=== PATIENT | female | born 1925 | race Caucasian/White ===

== ENCOUNTER 2016-04-29 21:13 | Emergency (ER) | payer MEDICARE, OTHER ==
[2016-04-29] MEDS ORDERED: NORMAL SALINE 1,000 ML IV ONE (22:23)
[2016-04-29] MEDS ORDERED: ONDANSETRON 4 MG TAB.RAPDIS PO ONE (22:23)
[2016-04-29] MEDS ORDERED: NORMAL SALINE 1,000 ML IV PRN (22:23)
--- NOTE | 2016-04-29 22:26 | ERNOTE ---
Medical Problem HPI - General Chief Complaint: Nausea/Vomiting Source: patient Exam Limitations: no limitations - Immun/Allergies/Home Medications Immunizations: IMMUNIZATION HX Immunizations Up to Date Yes History of Influenza Vaccine Yes Hx Pneumococcal Vaccination Yes Allergies/Adverse Reactions: Allergies amoxicillin Adverse Reaction (Verified 04/29/16 21:37) amoxicillin trihydrate [From Amoxil] Adverse Reaction (Verified 04/29/16 21:37) - History of Present History Narrative: onset 2 weeks ago but then subsided for a few days then had liquid black stools and has not improved Timing: getting worse Severity: moderate Modifying Factors - (Worsens): Present: eating Review of Systems - Review of Systems Constitutional: Absent: fever ENT: Present: no symptoms reported Respiratory: Present: no symptoms reported Cardiology: Present: no symptoms reported Gastrointestinal/Abdominal: Present: See HPI, nausea, vomiting, abdominal pain - with previous episodes not now Genitourinary: Present: no symptoms reported Musculoskeletal: Present: no symptoms reported Skin: Present: no symptoms reported Neurological: Present: no symptoms reported Endocrine: Present: no symptoms reported Hematologic/Lymphatic: Present: no symptoms reported Psych: Present: no symptoms reported - Patient's Past Medical History Patient History - Medical: History Unknown Patient History - Cardiac/Respiratory: History Unknown, Myocardial Infarction Patient History - Cancer: No Hx of Cancer Patient History - Surgical Procedures: Appendectomy, Colon Resection, Colonoscopy, Hysterectomy, Pacemaker Patient History - Other: None - Social History Living Situations: spouse Abuse History: No History of abuse Psych History: No pertinent hx Smoking Status: Never smoker Alcohol Use: occasionally Drug Use: none - Immunizations Immunizations Up to Date: Yes Hx Pneumococcal Vaccination: Yes History of Influenza Vaccine: Yes Physical Exam - Physical Exam General Appearance: Present: wd/wn, alert, no apparent distress Eye Exam: Normal inspection: bilateral, PERRL: bilateral Ears, Nose, Throat: Present: normal ENT inspection, hearing grossly normal Neck: Present: normal inspection, nontender Respiratory: Present: no respiratory distress, no accessory muscle use Cardiovascular/Chest: Present: no murmur, tachycardia Gastrointestinal/Abdominal: Present: nontender, nondistended, abnormal bowel sounds - hyperactive Extremity Exam: Present: normal inspection, non-tender, no edema Neurological Exam: Present: alert, oriented, normal mood/affect, no motor/ sensory deficits Skin Exam: Present: normal color, warm/dry ED Progress - Results and Orders Patient's Lab Results:: I have reviewed the patient's lab results. Results and Orders: Laboratory Tests 04/29/16 04/29/16 22:57 22:57 WBC 6.7 Hgb 12.6 Hct 39.0 Plt Count 166 Sodium 140 Potassium 3.8 Chloride 103 Carbon Dioxide 29.7 Anion Gap 11.1 BUN 35 H Creatinine 1.42 H Est GFR (Non-Af Amer) 37 L Random Glucose 72 Calcium 9.2 Total Bilirubin 0.4 AST 22 ALT 16 L Alkaline Phosphatase 89 Total Protein 6.7 Albumin 3.2 L - Vital Signs Patient's Vital Signs:: I have reviewed the patient's vital signs. Vital Signs: Vital Signs 04/29/16 04/29/16 21:24 22:00 Temperature 36.5 C Pulse Rate 100 108 H Respiratory 14 22 H Rate Blood Pressure 125/54 91/68 O2 Sat by Pulse 96 97 Oximetry - X-Ray X-Ray #1 X-Ray: abdomen Interpretation: Interp. by me X-ray Comments: air filled loops of bowel non-dilated, no evidence for obstruction. - Progress/Reassessment Chief Complaint: Nausea/Vomiting Departure - Departure Clinical Impression: Diarrhea of presumed infectious origin Disposition: Home Follow Up Needed Condition: Good Instructions: Diarrhea, Adult, [id number] Additional Instructions: may take medicine prescribed to you for diarrhea. do not take too much only to slow it down a little. Drink plenty of fluids especially sugar containing fluids
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
[2016-04-29 22:59] LABS: Hemoglobin 12.6 gm/dL (12.5-16.0); Mean Cell Volume 93.3 fl (78-100); Mean Corpuscular Hemoglobin 30.1 pg (27-31); Mean Corpuscular Hgb Conc 32.3 g/dl (32-36); Mean Platelet Volume 11.4 fl (6.0-9.5); Neutrophil % 59.7 % (42-75.0); Platelet Count 166 K/mm3 (150-450); Red Blood Count 4.18 M/mm3 (4.2-5.4); Red Cell Distribution Width 13.5 % (11.5-14.0); White Blood Count 6.7 K/mm3 (4.0-10.5)
[2016-04-29 23:11] LABS: Albumin * 3.2 gm/dl (3.4-5.0); Anion Gap 11.1 mmol/L (6.8-13.8); BUN/Creatinine Ratio 24.6 (9.0-21.6); Bilirubin, Total 0.4 mg/dL (0.0-1.1); Ca. Corrected For Albumin 9.5 mg/dL (8.4-10.2); Calcium * 9.2 mg/dL (7.9-10.9); Carbon Dioxide 29.7 mmol/L (24-32.6); Potassium 3.8 mmol/L (3.4-4.6); Total Protein 6.7 gm/dL (6.2-8.2)
[2016-04-30 00:39] VITALS: BP 122/69
== END 2016-04-30 00:38 | disposition home or self-care (01) ==
LOC: ER 21:13
DX: R19.7 Diarrhea, unspecified (principal); R11.10 Vomiting, unspecified; I25.2 Old myocardial infarction

== ENCOUNTER 2016-10-01 14:19 | Emergency (ER) | payer MEDICARE, OTHER ==
[2016-10-01] MEDS ORDERED: NORMAL SALINE 1,000 ML IV PRN (15:22)
[2016-10-01] MEDS ORDERED: CLONIDINE HCL 0.1 MG TABLET PO ONE (15:23)
[2016-10-01] MEDS ORDERED: CLONIDINE HCL 0.1 MG TABLET ONE (15:29)
[2016-10-01 15:35] LABS: Urine Appearance Clear; Urine Bilirubin Negative (NEGATIVE); Urine Blood 5 /ul (NEGATIVE); Urine Color Yellow; Urine Ketone Negative (NEGATIVE); Urine Nitrite Negative (NEGATIVE); Urine Protein 100 mg/dL (NEGATIVE); Urine Urobilinogen Normal (NORMAL); Urine pH 6.5 pH (5.0-7.0)
[2016-10-01 15:36] LABS: Urine Bacteria None Seen; Urine RBC 0-5 /hpf (0-5); Urine WBC None Seen /hpf (0-5)
[2016-10-01 15:42] LABS: Hematocrit 43.9 % (37.0-47.0); Hemoglobin 14.8 gm/dL (12.5-16.0); Mean Cell Volume 90.3 fl (78-100); Mean Corpuscular Hemoglobin 30.5 pg (27-31); Mean Corpuscular Hgb Conc 33.7 g/dl (32-36); Mean Platelet Volume 10.3 fl (6.0-9.5); Neutrophil # 4.8 K/mm3 (1.3-6.0); Neutrophil % 62.8 % (42-75.0); Platelet Count 220 K/mm3 (150-450); Red Blood Count 4.86 M/mm3 (4.2-5.4); Red Cell Distribution Width 12.9 % (11.5-14.0); White Blood Count 7.6 K/mm3 (4.0-10.5)
[2016-10-01 15:58] LABS: Albumin * 4.2 gm/dl (3.4-5.0); Anion Gap 10.8 mmol/L (6.8-13.8); BUN/Creatinine Ratio 16.5 (9.0-21.6); Ca. Corrected For Albumin 8.7 mg/dL (8.4-10.2); Calcium * 9.2 mg/dL (7.9-10.9); Carbon Dioxide 31.4 mmol/L (24-32.6); Potassium 4.2 mmol/L (3.4-4.6); Total Protein 8.1 gm/dL (6.2-8.2); Troponin I 0.018 ng/ml (0.00-0.10)
[2016-10-01] MEDS ORDERED: LABETALOL HCL 5 MG/ML VIAL IV ONE ×2 (16:20→16:30)
--- NOTE | 2016-10-01 17:52 | ERNOTE ---
Medical Problem HPI - Narrative Date of Service: 10/01/16 - General Chief Complaint: General Assessment Time Seen by Provider: 10/01/16 14:47 Source: patient Exam Limitations: no limitations - patient presents with elevated bp was seen earlier for hearing test, noted bp to be elevated - Immun/Allergies/Home Medications Immunizations: IMMUNIZATION HX Immunizations Up to Date Yes History of Influenza Vaccine Yes Hx Pneumococcal Vaccination Yes Allergies/Adverse Reactions: Allergies amoxicillin Adverse Reaction (Verified 10/01/16 14:31) amoxicillin trihydrate [From Amoxil] Adverse Reaction (Verified 10/01/16 14:31) Home Medications: HOME MEDICATIONS ALPRAZolam 0.25 mg PO HS 09/02/16 [Last Taken Unknown] Calcium 600 mg PO BID 09/02/16 [Last Taken Unknown] Carvedilol 3.125 mg PO BID 09/02/16 [Last Taken Unknown] Furosemide 20 mg PO DAILY 09/02/16 [Last Taken Unknown] Metoprolol ER-Hctz 100-12.5 mg 100 mg PO BID 09/02/16 [Last Taken Unknown] Miralax 17 gm PO DAILY 09/02/16 [Last Taken Unknown] Plavix 75 mg PO DAILY 09/02/16 [Last Taken Unknown] Potassium 10 meq PO DAILY 09/02/16 [Last Taken Unknown] Tylenol Pm Ex-Strength Caplet 500 mg PO HS 09/02/16 [Last Taken Unknown] Vitamin D 1,000 mg PO DAILY 09/02/16 [Last Taken Unknown] Warfarin Sodium 1 mg PO DAILY 09/02/16 [Last Taken Unknown] Welchol 625 mg PO DAILY 09/02/16 [Last Taken Unknown] Zocor 10 mg PO DAILY 09/02/16 [Last Taken Unknown] Ranitidine HCl [Zantac] 150 mg PO DAILY 10/01/16 [Last Taken Unknown] - History of Present History Timing: constant Severity: moderate Modifying Factors - (Improves): Present: other - nothing Review of Systems - Review of Systems Constitutional: Present: weakness, fatigue, malaise EYE: Present: no symptoms reported ENT: Present: no symptoms reported Respiratory: Present: no symptoms reported Cardiology: Present: no symptoms reported Gastrointestinal/Abdominal: Present: no symptoms reported Genitourinary: Present: no symptoms reported Musculoskeletal: Present: no symptoms reported Skin: Present: no symptoms reported Neurological: Present: no symptoms reported Endocrine: Present: no symptoms reported Hematologic/Lymphatic: Present: no symptoms reported Psych: Present: no symptoms reported All Other Systems: All systems neg except as marked - Patient's Past Medical History Patient History - Medical: History Unknown Patient History - Cardiac/Respiratory: History Unknown, Myocardial Infarction Patient History - Cancer: No Hx of Cancer Patient History - Surgical Procedures: Appendectomy, Colon Resection, Colonoscopy, Hysterectomy, Pacemaker Patient History - Other: None LMP (females 10-50): Menopausal - Family History Family History:: no untoward family reactions to anesthesia, no family history of clotting disorders - Social History Living Situations: home Abuse History: No History of abuse Psych History: No pertinent hx Does anyone smoke in the home?: No Smoking Status: Never smoker Have you smoked in the past 12 months: No Do you dip or chew tobacco: No Patient requests Smoking Cessation Consult: No Initiate information on Smoking Cessation: No Alcohol Use: none Drug Use: none - Immunizations Immunizations Up to Date: Yes Hx Pneumococcal Vaccination: Yes History of Influenza Vaccine: Yes Physical Exam - Physical Exam General Appearance: Present: mild distress Head Exam: Present: normal inspection, no evidence of injury Eye Exam: Normal inspection: bilateral, PERRL: bilateral, EOMI: bilateral Ears, Nose, Throat: Present: normal ENT inspection Neck: Present: normal inspection, nontender Respiratory: Present: no respiratory distress, normal breath sounds, no accessory muscle use, chest nontender, lungs clear Cardiovascular/Chest: Present: regular rate, rhythm, no murmur, normal peripheral pulses Peripheral Pulses: N=norm/S=strong/W=weak/B=bound/A=absent: Carotid (R): Normal , Carotid (L): Normal, Radial (R): Normal, Radial (L): Normal, Femoral (R): Normal, Femoral (L): Normal, Dorsalis-pedis (R): Normal, Dorsalis-pedis (L): Normal Gastrointestinal/Abdominal: Present: normal bowel sounds, nontender, nondistended, soft, no organomegaly Back Exam: Present: normal inspection, normal range of motion, no CVA tenderness , no vertebral tenderness Extremity Exam: Present: normal inspection, non-tender, normal range of motion, no edema Neurological Exam: Present: alert, oriented, normal mood/affect, no motor/ sensory deficits DTR: N=norm/NB=norm/brisk/A=abs/DD=dull/dimin/HC=hyperactive: Bicep (R): Normal , Bicep (L): Normal, Tricep (R): Normal, Tricep (L): Normal, Knee (R): Normal, Knee (L): Normal, Ankle (R): Normal, Ankle (L): Normal Skin Exam: Present: normal color, warm/dry Lymphatic Exam: Present: no adenopathy ED Progress - Results and Orders Patient's Lab Results:: I have reviewed the patient's lab results. - Vital Signs Patient's Vital Signs:: I have reviewed the patient's vital signs. Vital Signs: Vital Signs 10/01/16 10/01/16 10/01/16 14:25 15:10 15:24 Temperature 36.5 C Pulse Rate 86 99 102 H Respiratory 14 21 H 18 Rate Blood Pressure 173/157 193/119 191/141 O2 Sat by Pulse 94 99 100 Oximetry 10/01/16 10/01/16 10/01/16 15:39 15:41 16:00 Temperature Pulse Rate 107 H 102 H 88 Respiratory 18 17 Rate Blood Pressure 212/126 212/126 203/121 O2 Sat by Pulse 96 98 Oximetry 10/01/16 10/01/16 10/01/16 16:10 16:31 16:32 Temperature Pulse Rate 101 H 97 96 Respiratory 17 22 H Rate Blood Pressure 235/105 174/91 174/91 O2 Sat by Pulse 97 98 Oximetry 10/01/16 10/01/16 16:45 16:47 Temperature Pulse Rate 90 115 H Respiratory 17 15 Rate Blood Pressure 108/66 194/123 O2 Sat by Pulse 97 99 Oximetry - EKG EKG: NSR - Progress/Reassessment Chief Complaint: General Assessment Progress:: Improved - Transfer of Care Expected Disposition: Discharge Departure - Departure Clinical Impression: Hypertension Disposition: Home self-care Condition: Fair Instructions: Hypertension, [id number] Referrals: Celestino Jauregui MD [Primary Care Provider] -
[2016-10-01 18:17] VITALS: BP 93/50
== END 2016-10-01 18:12 | disposition home or self-care (01) ==
LOC: ER 14:19
DX: I10 Essential (primary) hypertension (principal); I25.2 Old myocardial infarction

== ENCOUNTER 2016-10-04 05:20 | Emergency (ER) | payer MEDICARE, OTHER ==
[2016-10-04] MEDS: NORMAL SALINE 1,000 ML IV ONE ×2 (05:56→06:02)
[2016-10-04] MEDS ORDERED: NORMAL SALINE 1,000 ML IV ONE ×3 (06:01→06:31)
[2016-10-04] MEDS ORDERED: NOREPINEPHRINE BITARTRATE 4 MG in DEXTROSE 5 % IN WATER 496 ML IV PRN ×2 (06:02)
[2016-10-04 06:14] LABS: INR 2.97 INR (0.90-1.10); Prothrombin Time (Patient) 30.9 Seconds (9.4-11.4)
[2016-10-04 06:16] VITALS: BP 72/42
[2016-10-04] MEDS ORDERED: PHYTONADIONE (VIT K1) 10 MG/ML AMPUL IV ONE (06:19)
[2016-10-04 06:20] LABS: Urine Bilirubin Negative (NEGATIVE); Urine Ketone Negative (NEGATIVE); Urine Nitrite Negative (NEGATIVE); Urine Protein 15 mg/dL (NEGATIVE); Urine Urobilinogen Normal (NORMAL)
[2016-10-04 06:20] LABS: Hematocrit 36.4 % (37.0-47.0); Hemoglobin 12.2 gm/dL (12.5-16.0); Mean Cell Volume 91.9 fl (78-100); Mean Corpuscular Hemoglobin 30.8 pg (27-31); Mean Corpuscular Hgb Conc 33.5 g/dl (32-36); Mean Platelet Volume 10.4 fl (6.0-9.5); Neutrophil # 13.4 K/mm3 (1.3-6.0); Neutrophil % 74.7 % (42-75.0); Platelet Count 208 K/mm3 (150-450); Red Blood Count 3.96 M/mm3 (4.2-5.4); Red Cell Distribution Width 12.4 % (11.5-14.0); White Blood Count 17.9 K/mm3 (4.0-10.5)
[2016-10-04] MEDS ORDERED: PHYTONADIONE (VIT K1) 10 MG/ML AMPUL ONE (06:20)
[2016-10-04 06:28] LABS: ALT 18 U/L (19-67); AST 52 U/L (0-48); Albumin * 3.3 gm/dl (3.4-5.0); Alkaline Phosphatase * 106 U/L (50-170); Anion Gap 14.3 mmol/L (6.8-13.8); BUN/Creatinine Ratio 14.8 (9.0-21.6); Bilirubin, Total 0.8 mg/dL (0.0-1.1); Blood Urea Nitrogen 13 mg/dL (3-23); Ca. Corrected For Albumin 8.8 mg/dL (8.4-10.2); Calcium * 8.6 mg/dL (7.9-10.9); Carbon Dioxide 24.6 mmol/L (24-32.6); Chloride 92 mmol/L (97-106); Glucose * 146 mg/dL (70-110); Potassium 4.9 mmol/L (3.4-4.6); Sodium 126 mmol/L (132-142); Total Protein 6.7 gm/dL (6.2-8.2); Troponin I Less than 0.017 ng/ml (0.00-0.10)
[2016-10-04 06:30] LABS: Urine Appearance Clear; Urine Blood 5 /ul (NEGATIVE); Urine Color Pale Yellow; Urine RBC TRACE /hpf (0-5); Urine WBC None Seen /hpf (0-5)
[2016-10-04 06:31] LABS: Urine Bacteria None Seen
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
== END 2016-10-04 08:38 | disposition expired ==
LOC: ER 05:20
PROC: 0T9B70Z Drainage of Bladder with Drainage Device, Via Natural or Artificial Opening (ICD-10-PCS; principal; 2016-10-04)
PROC: 0BH17EZ Insertion of Endotracheal Airway into Trachea, Via Natural or Artificial Opening (ICD-10-PCS; 2016-10-04)
DX: G93.5 Compression of brain (principal); S02.119A Unspecified fracture of occiput, initial encounter for closed fracture; W18.30XA Fall on same level, unspecified, initial encounter; Y93.9 Activity, unspecified; Y92.002 Bathroom of unspecified non-institutional (private) residence as the place of occurrence of the external cause; I48.91 Unspecified atrial fibrillation; Z79.01 Long term (current) use of anticoagulants; I10 Essential (primary) hypertension; E78.5 Hyperlipidemia, unspecified; Z86.73 Personal history of transient ischemic attack (TIA), and cerebral infarction without residual deficits